=== PATIENT | female | born 1960 | race Caucasian/White ===

== ENCOUNTER 2024-09-25 07:14 | Outpatient (CLI) | payer BC, SELFPAY ==
--- NOTE | 2024-09-25 08:18 | W.ANESCHARGE ---
Anesthesia Charges Start Date/Time Anesthesia Start Date: 09/25/24 Anesthesia Start Time: 08:29 Stop Date/Time Anesthesia Stop Date: 09/25/24 Anesthesia Stop Time: 08:51 Coding CPT Codes CPT Codes: [id number] LWR INTST NDAR NOS - [id number] ([id number]) P1 - NORMAL HEALTHY PATIENT, QK - LEAD ELECTRICAL ENGINEER 2-4 CNCRNT ANES PROC, QX - DELIVERY DRIVER/CUSTOMER SERVICE SVC W/ MED DIRECTION
--- NOTE | 2024-09-25 09:05 | W.ANESCHARGE ---
Anesthesia Charges Start Date/Time Anesthesia Start Date: 09/25/24 Anesthesia Start Time: 08:29 Stop Date/Time Anesthesia Stop Date: 09/25/24 Anesthesia Stop Time: 08:51 Coding CPT Codes CPT Codes: VIKTORIYA LWR INTST NDSC NOS - [id number] ([id number]) P2 - PATIENT W/MILD SYST DISEASE, QK - CUSTOMER SERVICE PROFESSIONAL 2-4 CNCRNT ANES PROC, QX - REHAB DIRECTOR OCCUPATIONAL THERAPIST SVC W/ MD MED DIRECTION
== END 2024-09-25 07:15 | disposition home or self-care (01) ==
LOC: OP CLINIC 07:17
PROVIDERS: PCP Family Medicine; Visit Provider Internal Medicine Gastroenterology
DX: Z12.11 Encounter for screening for malignant neoplasm of colon (principal); D12.2 Benign neoplasm of ascending colon; D12.5 Benign neoplasm of sigmoid colon; D12.8 Benign neoplasm of rectum; Z86.0100 Personal history of colon polyps, unspecified
CPT/HCPCS: 00811; 45385; 88305; J2704